=== PATIENT | male | born 1990 | race African-American/Black ===

== ENCOUNTER 2021-06-10 07:45 | Emergency (ER) | payer OTHER ==
[~2021-06-10] VITALS: Ht 185.4 cm; Wt 68.0 kg
--- NOTE | ~2021-06-10 | EMS ---
[facility] [address] [facility] [place] [place] [address] EMS Patient Care Report Name: TERI MONTERO Room: [facility] [place]#: [id number] Admission: 06/10/21 Attend Phys: Discharge: Date of : [birth year] Report #: [id number] THIS REPORT FOR: //name// Report Transmitted: 06/10/2021 07:39 EMS Care Summary NASIM ESPINO Incident 4230 @ 06/10/2021 06:42 Incident Location [address] [place] [address] Patient TERI MONTERO Male, 31 Years 1990 Patient Address [address] [place] [address] Patient History Schizoaffective Disorder,Hypertension (HTN),Bipolar disorder, unspecified, Patient Allergies , Patient Medications Abilify, Chief Complaint Psych/Behavioral Crisis Disposition Transported No Lights/[place] Reason Psychiatric Problem/Abnormal Behavior/Suicide Attempt Transported To [facility] Narrative [facility] WAS DISPATCHED TO A HOME ON A PSYCH. UPON ARRIVING ON SCENE WE WERE GREETED BY [employer] OFFICERS [employer], PT'S MOTHER AND PT. PT WAS SITTING ON COUCH FULLY CLOTHED, CALM, TALKING TO [employer]. [employer] FILLED EMS CREW IN ON WHAT THEY WERE CALLED FOR. PT'S MOTHER STATED "HE HAS BEEN OFF OF HIS MEDICATION FOR 2 YEARS". PT [facility] [address] [place] [address] EMS Patient Care Report Name: TERI MONTERO Room: [facility]#: [id number] Admission: 06/10/21 Attend Phys: Discharge: Date of : [birth year] Report #: [id number] WALKED TO EMS COT ON HIS OWN WILL WITH A STEADY GAIT. PT WAS THEN SECURED TO COT WITH SAFETY STRAPS AND WHEELED TO AMBULANCE. ONCE IN AMBULANCE VITALS WERE OBTAINED. PT WAS CALM AND COOPERATIVE. DURING TRANSPORT THIS EMT ASKED IF HE FELT LIKE HURTING ANYONE, PT REPLIED "YES I FEEL LIKE I COULD KILL SOMEONE". WHEN ASKED IF HE HAD A CERTAIN PERSON IN MIND, HE REPLIED "I'M NOT SAYING BECAUSE I DON'T WANT A RESTRAINING ORDER AGAINST ME". PT DID ADMIT TO DRINKING THIS MORNING. PT STATED "I HAD WINE AND SPIRITS." ONCE AT THE HOSPITAL PT SIGNATURE OBTAINED. PT WAS UNLOADED FROM THE AMBULANCE ON THE COT AND WHEELED INTO THE ER. ONCE IN THE ER HE WAS UNBUCKLED FROM THE SAFETY STRAPS AND WALKED TO A CHAIR THAT WAS IN THE ER ROOM. AGAIN, PT HAD A STEADY GAIT. WHILE IN THE ROOM EMS WAS GREETED BY RN AND ER DOC. REPORT WAS GIVEN TO BOTH PROVIDERS AND RN SIGNATURE WAS OBTAINED ALONG WITH PAPERWORK. Initial Vitals @07:10SpO2: 100, @07:32SpO2: 100, @07:10P: 47,R: 16,BP: 138/94, @07:32P: 60,R: 17,BP: 136/77, @07:39P: 65,R: 17,BP: 129/81, @07:10GCS: 15, @07:32GCS: 15, @07:39GCS: 15, @07:35 Assessments @07:04MENTAL:SKIN:HEENT:LUNG SOUNDS:ABDOMEN:PELVIS//GI:EXTREMITIES:PULSE:NEURO: Impression Mental disorder Timeline 06:42,Dispatch Notified 06:42,Psap Call 06:42,Dispatched 06:42,En Route 06:48,On Scene 07:04,At Patient 07:10,BP: / M,PULSE: ,RR: R,SPO2: 100 Ox,ETCO2: ,BG: ,PAIN: ,GCS: , 07:10,BP: 138/94 M,PULSE: 47,RR: 16 R,SPO2: Ox,ETCO2: ,BG: ,PAIN: ,GCS: , 07:10,BP: / M,PULSE: ,RR: R,SPO2: Ox,ETCO2: ,BG: ,PAIN: ,GCS: 15, 07:18,Depart Scene 07:32,BP: / M,PULSE: ,RR: R,SPO2: 100 Ox,ETCO2: ,BG: ,PAIN: ,GCS: , 07:32,BP: 136/77 M,PULSE: 60,RR: 17 R,SPO2: Ox,ETCO2: ,BG: ,PAIN: ,GCS: , 07:32,BP: / M,PULSE: ,RR: R,SPO2: Ox,ETCO2: ,BG: ,PAIN: ,GCS: 15, [place] [address] EMS Patient Care Report Name: TERI MONTERO [id number] Admission: 06/10/21 Attend Phys: Discharge: Date of : 89 Report #: [id number] 07:35,BP: / M,PULSE: ,RR: R,SPO2: Ox,ETCO2: ,BG: ,PAIN: ,GCS: , 07:39,BP: 129/81 M,PULSE: 65,RR: 17 R,SPO2: Ox,ETCO2: ,BG: ,PAIN: ,GCS: , 07:39,BP: / M,PULSE: ,RR: R,SPO2: Ox,ETCO2: ,BG: ,PAIN: ,GCS: 15, 07:40,At Destination 07:53,Call Closed Disclaimer v1.1 Copyright 2021 [employer] This EMS Care Summary contains data elements from the applicable legal record (which may be displayed differently). It is designed to provide pertinent information for the following purposes: continuity of care, clinical quality, and state data reporting. The complete legal record is available to ED staff and administrators of the receiving hospital in [employer] Patient Tracker. All data is provided "as is."
[2021-06-10 08:27] LABS: URINE COLOR YELLOW
[2021-06-10 08:28] LABS: URINE BLOOD NEGATIVE (Negative); URINE CLARITY CLEAR; URINE GLUCOSE-RANDOM NEGATIVE (Negative); URINE KETONES NEGATIVE (Negative); URINE NITRITE-REFLEX NEGATIVE (Negative); URINE PROTEIN NEGATIVE (Negative); URINE REDUCING SUBSTANCE NEGATIVE (Negative); URINE SPECIFIC GRAVITY 1.015 (1.005-1.030); URINE UROBILINOGEN 0.2 E.U./dl (0.2-1.0)
[2021-06-10 08:29] LABS: URINE BILIRUBIN NEGATIVE (Negative); URINE LEUKOCYTES-REFLEX NEGATIVE (Negative)
[2021-06-10 08:34] LABS: ABSOLUTE LYMPHOCYTES 1.9 thou/uL (0.8-5.3); ABSOLUTE MONOCYTES 0.5 thou/uL (0.0-1.2); ABSOLUTE NEUTROPHILS 4.2 thou/uL (1.6-8.1); BASOPHILS 0.5 %; EOSINOPHILS 0.6 %; HEMATOCRIT 45.3 % (42.0-52.0); HEMOGLOBIN 14.8 gm/dL (14.0-18.0); LYMPHOCYTES 28.7 %; MCH 29.2 pg (26.0-34.0); MCHC 32.7 g/dL (28.0-37.0); MCV 89.2 fL (80.0-100.0); MONOCYTES 7.6 %; MPV 7.9 fl. (7.2-11.1); NUCLEATED RBCS 0 /100WBC; PLATELET COUNT* 217 thou/uL (150-400); POLYS 62.6 %; RBC 5.08 mil/uL (4.50-6.00); RDW-CV 13.8 % (10.5-14.5); WBC 6.7 thou/uL (4.0-11.0)
[2021-06-10 08:35] LABS: AMP/METHAMP Negative (Negative); BARBITURATES Negative (Negative); BENZODIAZEPINES Negative (Negative); COCAINE Negative (Negative); METHADONE Negative (Negative); OPIATES Negative (Negative); PCP Negative (Negative); THC POSITIVE (Negative)
[2021-06-10 08:49] LABS: CALCIUM 8.6 mg/dL (8.5-10.1); CREATININE 0.8 mg/dL (0.6-1.3); POTASSIUM 3.7 mmol/L (3.5-5.1)
[2021-06-10 08:52] LABS: SALICYLATE 3.1 mg/dL (2.8-20.0)
[2021-06-10 08:54] LABS: ALBUMIN 4.1 g/dL (3.4-5.0); TOTAL BILIRUBIN 0.6 mg/dL (<0.1-1.0); TOTAL PROTEIN 8.1 g/dL (6.4-8.2)
[2021-06-10 08:56] LABS: ACETAMINOPHEN 2 ug/mL (10-30); ALCOHOL < 10 mg/dL (<10)
[2021-06-10 13:15] VITALS: BP 137/79
--- NOTE | 2021-06-10 13:16 | EKG ---
[place] [address] ELECTROCARDIOGRAM REPORT Name: TERI MONTERO Room: [employer]#: [id number] Admission: 06/10/21 Attend Phys: Discharge: Date of : [birth year] Date of Service: 06/10/21805 Report #: [id number] THIS REPORT FOR: //name// [facility] ED Test Date: 2021-06-10 Test Time: 08:06:19 Pat Name: TERI MONTERO Department: Room: Gender: Web Content Specialist[place] [facility] [place] 1990 Requested By: Carlitos Cosme Order Number: [id number] MD: Harvey Ovalle Measurements Intervals [place] Rate: 43 P: -21 WI: 137 QRS: 58 QRSD: 115 T: 47 QT: 457 QTc: 387 Interpretive Statements Sinus bradycardia Probable left ventricular hypertrophy ST elev, probable normal early repol pattern No previous ECG available for comparison Electronically Signed On 06-10-2021 13:16:09 INSURANCE SALES MANAGER by Harvey Ovalle [email or web address] <ELECTRONICALLY SIGNED> By: Harvey Ovalle MD, [facility] 06/10/21 1316 5 5 Harvey Ovalle MD, [facility] /EPI
== END 2021-06-10 13:15 | disposition home or self-care (01) ==
LOC: M.ERS 07:45
PROVIDERS: Emergency Medicine Emergency Medical Services
DX: F20.9 Schizophrenia, unspecified (principal); Z20.822 Contact with and (suspected) exposure to COVID-19; R00.1 Bradycardia, unspecified; F31.9 Bipolar disorder, unspecified